=== PATIENT | female | born 1965 | race Caucasian/White ===

== ENCOUNTER 2020-08-10 05:49 | Day surgery (SDC) | payer MEDICAID ==
[~2020-08-10] VITALS: Ht 152.4 cm; Wt 108.6 kg
--- NOTE | ~2020-08-10 | OP ---
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 PROCEDURE: Anterior cervical discectomy and fusion at C3-4 with Zavation anterior cervical plate and screws; removal of osteophytes at C3-4 under microscopic illumination; Peek interbody cage, separate cage; and Kristyn bone allograft with stem cells. DESCRIPTION OF TECHNIQUE: After induction of general endotracheal anesthesia, the patient was positioned supine on the operating table with a midline interscapular roll. After sterile prep and drape, the C3-4 interspace was identified with fluoroscopic x-ray and a Roland. After infiltration of 1:100,000 epinephrine with 1% lidocaine, a transverse skin incision was carried out from the midline to the sternocleidomastoid muscle. The platysma was divided with a #15-blade. Using blunt and sharp dissection with Metzenbaum scissors, I proceeded in an avascular plane medial to the carotid sheath. Following this, the C3-4 interspace was identified with fluoroscopic x-ray and a spinal needle. The longus colli muscles were elevated from bodies of C3 and C4. A self-retaining retractor was placed deep to the longus colli muscles. [place] distracting pins were placed in bodies of C3 and C4. The disc space was incised under distraction. The disc material was removed with pituitary rongeurs and curettes. The posterior longitudinal ligament was removed with Cloward rongeurs. Osteophytes were drilled away posteriorly with a microscope and a Midas Sohail drill. Following this, the dura was decompressed well. A PEEK interbody cage was placed in the disc space under distraction. Prior to this filled with Kristyn bone allograft and stem cells. A separate anterior cervical plate and screws was used to span the C3-C4 interspace. Locking Cams were tightened down over the screw heads. Good position of the hardware was confirmed with fluoroscopic x-ray. The platysma and subdermal layer closed with interrupted 4-0 Vicryl suture. The skin was reapproximated with Steri-Strips and benzoin. A sterile dressing was applied to the wound. The patient was awakened in good condition and taken to recovery. All counts were reported as correct. Estimated blood loss was minimal. NTS:[id number] Voice Confirmation ID: [id number] DOCUMENT ID: [id number] AUNG WHITE MD CC: [id number] DICTATION DATE: 08/20/20 1302 [employer]: 08/21/20 0112 [facility] 08/11/20 [place] [id number]
[~2020-08-10 05:49] MED LIST: ALBUTEROL2.5 MG/3 M INH; COZAAR50 MG PO; ELAVIL25 MG PO; GLUCOPHAGE1000 MG PO; LIPITOR40 MG PO; MOBIC7.5 MG PO; NORVASC5 MG PO; OMEPRAZOLE40 MG PO; PROAIR HFA8.5 G1 INH; PROTONIX40 MG PO; PROZAC20 MG PO; SINGULAIR10 MG PO; VENTOLIN HFA [SP8 GM INH
[2020-08-10 06:06] LABS: HEMATOCRIT 33.4 % (36.0-48.0); HEMOGLOBIN 10.1 g/dL (12-16); MCH 26.4 pg (26.0-34.0); MCHC 30.2 g/dL (31.0-37.0); MCV 87.2 fL (80.0-100.0); MEAN PLATELET VOLUME 9.6 fL (7.4-10.4); RBC 3.83 10x6/uL (4.00-5.40); WBC 7.3 10x3/uL (4.8-10.8)
[2020-08-10 08:38] VITALS: BP 132/87; BMI 46.9
[2020-08-10 09:07] LABS: ANION GAP 9.2 mmol/L (8-16); CALCIUM 9.4 mg/dL (8.5-10.1); CARBON DIOXIDE 30.6 mmol/L (21.0-32.0); CREATININE - SERUM 0.9 mg/dL (0.6-1.3); POTASSIUM - SERUM 3.8 mmol/L (3.5-5.1)
[2020-08-10] MEDS ORDERED: HYDROCODON-ACE1 EA10 PO (11:27)
[2020-08-10 14:14] VITALS: BP 130/68
--- NOTE | 2020-08-10 14:15 | NUR ---
RECEVIED PT FROM PACU, VS WNL. PIV IN LEFT HAND, PATENT AND INFUSING, NO REDNESS OR SWELLING. INCISIONS ON RIGHT SIDE OF NECK, GLUE INTACT, NO DRSG. PT HAS NECK BRACE IN PLACE, NEEDS TO STAY IN PLACE UNLESS PT IN BED. PT ABLE TO AMBULATE WITH MIN ASSIST. EDUCATED PT ON CL AND NEEDS, VERBALIZED UNDERSTANDING. BED LOW, RAILS X2. CL IN REACH, WILL CONTINUE TO MONITOR.
[2020-08-10 15:12] VITALS: BP 120/78
[2020-08-10 15:14] VITALS: BP 128/67
--- NOTE | 2020-08-10 15:29 | NUR ---
1500 TRANSFERRED TO MS. PATIENT DOING WELL. AMBULATED FROM STRETCHER TO BED WITH NECK BRACE IN PLACE. ASSISTED TO BED AND DIET SODA GIVEN TO DRINK. VOICES NO OTHER NEEDS. CARE TRANSFERRED TO CRISTIANE ORTEGA RN.
[2020-08-10 16:14] VITALS: BP 130/72
[2020-08-10 17:46] VITALS: BP 128/68; Ht 152.4 cm; Wt 108.6 kg
[2020-08-11] VITALS: BP 132/87
[2020-08-11 04:00] VITALS: BP 139/84
--- NOTE | 2020-08-11 07:15 | NUR ---
RECEIVED BEDSIDE REPORT. PIV IN RIGHT HAND, PATENT AND INFUSING, NO REDNESS OR SWELLING. DENIES PAIN. RIGHTSIDE OF NECK INCISION, GLUED AND OPEN TO AIR. PT WEARS NECK BRACE WHILE ACTIVE. PT ABLE TO AMBULATE WITH MIN ONE PERSON ASSIST. EDUCATED PT ON CL AND NEEDS, VERBALIZED UNDERSTANDING. BED LOW, RAILS X2. CL IN REACH, WILL CONTINUE TO MONITOR.
[2020-08-11 10:43] VITALS: BP 147/90
--- NOTE | 2020-08-11 11:17 | NUR ---
EDUCATED PT ON DISCHARGE INSTRUCTIONS, MEDICATIONS, ACTIVITY AND FOLLOW UP APT. PT VERBALIZED UNDERSTANDING AND SIGNED PAPERWORK. REMOVED PIV FROM RIGHT HAND, CATHETER INTACT, PT TOLERATED WELL. ESCORTED PT TO ENTRANCE VIA WHEELCHAIR.
== END 2020-08-11 11:22 | disposition home or self-care (01) ==
LOC: D.MS 05:49 → D.OPS 05:49 → D.PAN 08:30 → D.MS 14:49 → D.OPS 08-11 11:22
PROVIDERS: Anesthesiology; ATTEND Neurological Surgery
DX: M54.12 Radiculopathy, cervical region (principal); M54.16 Radiculopathy, lumbar region; I10 Essential (primary) hypertension; K21.9 Gastro-esophageal reflux disease without esophagitis; E11.9 Type 2 diabetes mellitus without complications; Z79.84 Long term (current) use of oral hypoglycemic drugs; E78.5 Hyperlipidemia, unspecified; U07.1 COVID-19